=== PATIENT | female | born 1950 | race Hispanic/Latino ===

== ENCOUNTER 2024-03-09 06:36 | Inpatient (IN) | payer OTHER, MEDICARE ==
[2024-03-04 11:59] LABS: BASOPHILS % 0.6 % (0.0-1.0); EOSINOPHILS # (AUTO) 0.3 (0.0-0.4); EOSINOPHILS % 5.1 % (0.0-6.0); HEMATOCRIT 37.2 % (34.2-44.1); HEMOGLOBIN 11.5 g/dL (12.0-16.0); LYMPHOCYTES # (AUTO) 1.6 (1.0-3.2); LYMPHOCYTES % 30.5 % (18.0-39.1); MEAN CORPUSCULAR HEMOGLOBIN 29.5 pg (28-32); MEAN CORPUSCULAR HGB CONC 30.9 g/dL (31-35); MEAN CORPUSCULAR VOLUME 95.4 fL (81-99); MONOCYTES # (AUTO) 0.4 (0.2-0.8); MONOCYTES % 7.6 % (4.4-11.3); NEUTROPHILS # (AUTO) 2.9 (2.1-6.9); PLATELET COUNT 208 x10e3/uL (140-360); RED CELL DISTRIBUTION WIDTH 13.8 % (11.7-14.4); WHITE BLOOD COUNT 5.11 x10e3/uL (4.8-10.8)
[2024-03-04 12:16] LABS: ANION GAP 12.5 mmol/L (8-16); CALCIUM 9.2 mg/dL (8.4-10.2); CREATININE, SERUM 0.66 mg/dL (0.57-1.11); POTASSIUM 4.5 mmol/L (3.5-5.1)
[~2024-03-09] VITALS: Ht 144.8 cm; Wt 62.1 kg
[~2024-03-09 06:36] MED LIST: AMITRIPTYLINE H10 MG PO; DICLOFENAC PO; LISINOPRIL10 MG PO; METFORMIN HCL500 MG PO; SIMVASTATIN20 MG PO; TRAZODONE HCL100 MG PO; VITAMIN D250000 UNIT PO
[2024-03-09] MEDS: LACTATED RINGER'S 1,000 ML ONE (08:20)
[2024-03-09] MEDS ORDERED: BUPIVACAINE 0.25% 30ML SDV ONE (08:44)
[2024-03-09] MEDS ORDERED: FENTANYL CITRATE/PF 100MCG/2 ML INJ ONE (10:58)
[2024-03-09] MEDS: SODIUM CHLORIDE 0.9% 250ML IRRIG IR SCH (12:45)
[2024-03-09] MEDS: FENTANYL CITRATE/PF 100MCG/2 ML INJ ONE (12:53)
[2024-03-09] MEDS: HYDROMORPHONE 1MG/1ML INJ IV PRN (13:24)
[2024-03-09] MEDS: SODIUM CHLORIDE 0.9% 1000ML 1,000 ML IV SCH (15:24)
[2024-03-09] MEDS ORDERED: GABAPENTIN100 MG PO ×2 (15:40)
[2024-03-09] MEDS ORDERED: LEXAPRO10 MG PO (15:47)
[2024-03-09] MEDS ORDERED: PANTOPRAZOLE SO40 MG PO (15:50)
[2024-03-09] MEDS ORDERED: ALENDRONATE SOD70 MG PO (15:50)
[2024-03-09] MEDS: ROPIVACAINE/EPI/CLONIDINE/KET 50 ML SYRINGE INJ ONE (16:40)
[2024-03-09 16:49] VITALS: BP 131/78; PULSE 93; RESP 17; TEMP 97.4; O2SAT 96
[2024-03-09 17:00] VITALS: PULSE 95; RESP 18; O2SAT 98
[2024-03-09] MEDS ORDERED: EPHEDRINE SULFATE INJ 50 MG/ML VIAL ONE (17:19)
[2024-03-09] MEDS ORDERED: ONDANSETRON HCL INJ 2MG/ML 2ML 2 MG/ML VIAL ONE (17:19)
[2024-03-09] MEDS ORDERED: SEVOFLURANE INHAL SOLN 250 ML PEN BTL ONE (17:19)
[2024-03-09] MEDS ORDERED: DEXAMETHASONE SOD PHOS INJ 4 MG/ML SDV ONE (17:19)
[2024-03-09] MEDS ORDERED: LIDOCAINE HCL 2% LOCAL INJ 5 ML SDV VIAL INJ ONE (17:19)
[2024-03-09] MEDS ORDERED: ACETAMINOPHEN 1000 MG/100 ML IV ONE (17:19)
[2024-03-09] MEDS ORDERED: EYE LUBRICANT OPTH OINT 3.5GM TUBE OP ONE (17:19)
[2024-03-09] MEDS ORDERED: PROPOFOL IV EMULSION 10 MG/ML 20 ML VIAL ONE (17:19)
[2024-03-09] MEDS ORDERED: ROCURONIUM BROMIDE 10 MG/ML 5ML VIAL IV ONE (17:19)
[2024-03-09] MEDS ORDERED: SUGAMMADEX SODIUM 200 MG/2 ML VIAL IV ONE (17:19)
[2024-03-09] MEDS ORDERED: DEXMEDETOMIDINE HCL 200 MCG/2 ML VIAL ONE (17:19)
[2024-03-09 18:10] VITALS: BP 155/82; PULSE 73; RESP 18; TEMP 97.4; O2SAT 98
[2024-03-09 18:50] VITALS: PULSE 82; RESP 16; O2SAT 98
[2024-03-09 20:00] VITALS: BP 117/77; PULSE 99; RESP 17; TEMP 98.3; O2SAT 96
[2024-03-10] VITALS (9 sets, daily range): BP systolic 115–137; BP diastolic 68–74; PULSE 80–94; RESP 16–18; TEMP 98.9–100.6; O2SAT 94–98
[2024-03-10] MEDS: ACETAMINOPHEN 1000 MG/100 ML IV PRN (02:39)
[2024-03-10 05:37] LABS: BASOPHILS % 0.1 % (0.0-1.0); HEMATOCRIT 32.3 % (34.2-44.1); HEMOGLOBIN 10.1 g/dL (12.0-16.0); LYMPHOCYTES % 7.9 % (18.0-39.1); MEAN CORPUSCULAR HEMOGLOBIN 29.1 pg (28-32); MEAN CORPUSCULAR HGB CONC 31.3 g/dL (31-35); MEAN CORPUSCULAR VOLUME 93.1 fL (81-99); MONOCYTES % 8.2 % (4.4-11.3); NEUTROPHILS # (AUTO) 10.3 (2.1-6.9); NEUTROPHILS % 83.4 % (38.7-80.0); PLATELET COUNT 220 x10e3/uL (140-360); RED BLOOD COUNT 3.47 x10e6/uL (3.6-5.1); RED CELL DISTRIBUTION WIDTH 13.9 % (11.7-14.4); WHITE BLOOD COUNT 12.35 x10e3/uL (4.8-10.8)
[2024-03-10 06:47] LABS: CALCIUM 8.1 mg/dL (8.4-10.2); CREATININE, SERUM 0.6 mg/dL (0.57-1.11)
[2024-03-10] MEDS: SODIUM CHLORIDE 0.9% IRRIG 1,000 ML BTL IR SCH (13:12)
[2024-03-10] MEDS: ONDANSETRON HCL INJ 2MG/ML 2ML 2 MG/ML VIAL IV PRN (14:16)
[2024-03-11] VITALS (9 sets, daily range): BP systolic 100–156; BP diastolic 52–88; PULSE 77–88; RESP 18–21; TEMP 97.9–99.2; O2SAT 95–99
[2024-03-11 05:19] LABS: BASOPHILS # (AUTO) 0.1 (0.0-0.1); BASOPHILS % 0.4 % (0.0-1.0); EOSINOPHILS % 0.3 % (0.0-6.0); HEMATOCRIT 32.2 % (34.2-44.1); HEMOGLOBIN 9.9 g/dL (12.0-16.0); LYMPHOCYTES # (AUTO) 1.3 (1.0-3.2); LYMPHOCYTES % 10.4 % (18.0-39.1); MEAN CORPUSCULAR HEMOGLOBIN 29.4 pg (28-32); MEAN CORPUSCULAR HGB CONC 30.7 g/dL (31-35); MEAN CORPUSCULAR VOLUME 95.5 fL (81-99); MONOCYTES % 7.6 % (4.4-11.3); NEUTROPHILS # (AUTO) 10.1 (2.1-6.9); NEUTROPHILS % 80.8 % (38.7-80.0); PLATELET COUNT 200 x10e3/uL (140-360); RED BLOOD COUNT 3.37 x10e6/uL (3.6-5.1); RED CELL DISTRIBUTION WIDTH 14.2 % (11.7-14.4); WHITE BLOOD COUNT 12.46 x10e3/uL (4.8-10.8)
[2024-03-11 05:57] LABS: ANION GAP 11.6 mmol/L (8-16); CALCIUM 8.2 mg/dL (8.4-10.2); CREATININE, SERUM 0.5 mg/dL (0.57-1.11); POTASSIUM 3.6 mmol/L (3.5-5.1)
[2024-03-11] MEDS: ACETAMINOPHEN 325 MG TAB PO PRN (07:40)
[2024-03-11] MEDS: BISACODYL 10 MG SUPP PR SCH (19:45)
[2024-03-12] VITALS (10 sets, daily range): BP systolic 132–151; BP diastolic 66–78; PULSE 74–85; RESP 17–21; TEMP 97.9–99; O2SAT 96–100
[2024-03-12 05:26] LABS: BASOPHILS # (AUTO) 0.1 (0.0-0.1); BASOPHILS % 0.5 % (0.0-1.0); EOSINOPHILS # (AUTO) 0.3 (0.0-0.4); EOSINOPHILS % 2.5 % (0.0-6.0); HEMATOCRIT 28.8 % (34.2-44.1); HEMOGLOBIN 9.3 g/dL (12.0-16.0); LYMPHOCYTES # (AUTO) 1.3 (1.0-3.2); LYMPHOCYTES % 11.6 % (18.0-39.1); MEAN CORPUSCULAR HEMOGLOBIN 30.1 pg (28-32); MEAN CORPUSCULAR HGB CONC 32.3 g/dL (31-35); MEAN CORPUSCULAR VOLUME 93.2 fL (81-99); MONOCYTES # (AUTO) 0.7 (0.2-0.8); MONOCYTES % 6.7 % (4.4-11.3); NEUTROPHILS # (AUTO) 8.6 (2.1-6.9); NEUTROPHILS % 78.3 % (38.7-80.0); PLATELET COUNT 193 x10e3/uL (140-360); RED BLOOD COUNT 3.09 x10e6/uL (3.6-5.1); RED CELL DISTRIBUTION WIDTH 13.9 % (11.7-14.4); WHITE BLOOD COUNT 10.99 x10e3/uL (4.8-10.8)
[2024-03-12 05:52] LABS: ANION GAP 10.7 mmol/L (8-16); CALCIUM 8.2 mg/dL (8.4-10.2); CREATININE, SERUM 0.47 mg/dL (0.57-1.11); POTASSIUM 3.7 mmol/L (3.5-5.1)
[2024-03-12] MEDS: GABAPENTIN 300 MG CAP PO SCH (20:00)
[2024-03-13] VITALS: BP 137/66; PULSE 85; RESP 20; TEMP 98; O2SAT 100
[2024-03-13 04:00] VITALS: BP 134/67; PULSE 86; RESP 18; TEMP 98.6; O2SAT 100
[2024-03-13 07:55] VITALS: PULSE 86; RESP 18; O2SAT 97
[2024-03-13 08:00] VITALS: BP 129/73; PULSE 92; RESP 19; TEMP 99.3; O2SAT 99
[2024-03-13 08:18] VITALS: BP 129/73
[2024-03-13] MEDS: LISINOPRIL 20 MG TAB PO SCH (08:18)
[2024-03-13] MEDS: GABAPENTIN 300 MG CAP PO SCH (08:18)
[2024-03-13] MEDS ORDERED: AMITRIPTYLINE HCL 10 MG TAB PO SCH (21:00)
== END 2024-03-13 12:45 | disposition home or self-care (01) | DRG 337 ==
LOC: OR 06:36 → PACU V 12:37 → MED/SURG 14:14
PROVIDERS: ADMIT Surgery; ATTEND Surgery
PROC: 0DNE0ZZ Release Large Intestine, Open Approach (ICD-10-PCS; 2024-03-09)
PROC: 0WUF0JZ Supplement Abdominal Wall with Synthetic Substitute, Open Approach (ICD-10-PCS; 2024-03-09)
PROC: 0DN80ZZ Release Small Intestine, Open Approach (ICD-10-PCS; principal; 2024-03-09 08:54)
DX: K43.6 Other and unspecified ventral hernia with obstruction, without gangrene (principal); D63.8 Anemia in other chronic diseases classified elsewhere; I10 Essential (primary) hypertension; Z90.49 Acquired absence of other specified parts of digestive tract; E66.9 Obesity, unspecified; Z68.29 Body mass index [BMI] 29.0-29.9, adult
CPT/HCPCS: 36415; 71046; 80048; 85025; 88302; 93005; 94799; 99252; C1781; J0696; J1100; J1171; J2003; J2405; J2470; J2795; J7030

== ENCOUNTER 2024-09-12 10:21 | Inpatient (IN) | payer MEDICARE ==
[~2024-09-12] VITALS: Ht 144.8 cm; Wt 54.2 kg
[2024-09-12] VITALS (7 sets, daily range): BP systolic 135–150; BP diastolic 76–86; PULSE 83–102; RESP 16–18; TEMP 98.2–98.9; O2SAT 97–99
[~2024-09-12 10:21] MED LIST changes: +ALENDRONATE SOD70 MG PO; +GABAPENTIN100 MG PO; +LEXAPRO10 MG PO; +PANTOPRAZOLE SO40 MG PO
[2024-09-12 11:20] LABS: BASOPHILS % 0.4 % (0.0-1.0); EOSINOPHILS # (AUTO) 0.1 (0.0-0.4); EOSINOPHILS % 0.7 % (0.0-6.0); HEMATOCRIT 38.4 % (34.2-44.1); HEMOGLOBIN 13.1 g/dL (12.0-16.0); LYMPHOCYTES # (AUTO) 0.8 (1.0-3.2); LYMPHOCYTES % 10.1 % (18.0-39.1); MEAN CORPUSCULAR HEMOGLOBIN 28.9 pg (28-32); MEAN CORPUSCULAR HGB CONC 34.1 g/dL (31-35); MEAN CORPUSCULAR VOLUME 84.8 fL (81-99); MONOCYTES # (AUTO) 0.2 (0.2-0.8); MONOCYTES % 2.8 % (4.4-11.3); NEUTROPHILS # (AUTO) 6.5 (2.1-6.9); NEUTROPHILS % 85.6 % (38.7-80.0); PLATELET COUNT 168 x10e3/uL (140-360); RED BLOOD COUNT 4.53 x10e6/uL (3.6-5.1); RED CELL DISTRIBUTION WIDTH 14.8 % (11.7-14.4)
[2024-09-12] MEDS: SODIUM CHLORIDE 0.9% 1000ML 1,000 ML IV STA (11:46)
[2024-09-12] MEDS: ONDANSETRON HCL INJ 2MG/ML 2ML 2 MG/ML VIAL IV PRN (11:46)
[2024-09-12] MEDS: FENTANYL CITRATE/PF 100MCG/2 ML INJ IV PRN (11:48)
[2024-09-12 12:39] LABS: ALBUMIN 3.8 g/dL (3.5-5.0); ANION GAP 15.3 mmol/L (8-16); BILIRUBIN,TOTAL 1.2 mg/dL (0.2-1.2); CALCIUM 8.7 mg/dL (8.4-10.2); CREATININE, SERUM 0.6 mg/dL (0.57-1.11); TOTAL PROTEIN 7.6 g/dL (6.5-8.1)
[2024-09-12 12:47] LABS: POTASSIUM 3.3 mmol/L (3.5-5.1)
[2024-09-12] MEDS ORDERED: IOPAMIDOL 370 MG/ML 100 ML INFUS..BTL INJ ONE (12:59)
[2024-09-12 14:12] LABS: CLARITY,URINE CLEAR (CLEAR); COLOR,URINE YELLOW (YELLOW)
[2024-09-12 14:13] LABS: BILIRUBIN,URINE NEGATIVE (NEGATIVE); GLUCOSE, URINE NEGATIVE (NEGATIVE); KETONES,URINE 1+ (NEGATIVE); LEUKOCYTE ESTERASE ,URINE NEGATIVE (NEGATIVE); NITRITE,URINE NEGATIVE (NEGATIVE); PH,URINE 7 (5 - 7); PROTEIN,URINE DIPSTICK NEGATIVE (NEGATIVE); URINE UROBILINOGEN 0.2 mg/dL (0.2 - 1)
[2024-09-12 14:16] LABS: BACTERIA,URINE RARE /HPF; EPITHELIAL CELLS,URINE FEW /LPF; RBC,URINE 0-5 /HPF (0-5)
[2024-09-12] MEDS: SODIUM CHLORIDE 0.9% 1000ML 1,000 ML IV SCH (15:48)
[2024-09-12] MEDS ORDERED: DICLOFENAC SODI50 MG (17:14)
[2024-09-12] MEDS ORDERED: FAMOTIDINE20 MG PO (17:14)
[2024-09-12] MEDS ORDERED: BENICAR20 MG PO (17:14)
[2024-09-12] MEDS: Morphine 4mg INJECTION 4 MG/ML INJ IV PRN (20:43)
[2024-09-12] MEDS: METRONIDAZOLE 750MG/NS 150ML 150 ML IV SCH (22:58)
[2024-09-13] VITALS (11 sets, daily range): BP systolic 109–142; BP diastolic 58–82; PULSE 76–98; RESP 17–20; TEMP 97.8–99; O2SAT 96–100
[2024-09-13] MEDS ORDERED: METOPROLOL TARTRATE INJ 1 MG/ML VIAL IV PRN (07:15)
[2024-09-13] MEDS ORDERED: DOCUSATE SODIUM 100 MG CAP PO PRN (07:15)
[2024-09-13] MEDS ORDERED: MELATONIN 3 MG TAB PO PRN (07:15)
[2024-09-13] MEDS ORDERED: ALBUTEROL/IPRATROPIUM 3 ML NEB NEB PRN (07:15)
[2024-09-13] MEDS: AMITRIPTYLINE HCL 10 MG TAB PO SCH (08:32)
[2024-09-13] MEDS: GABAPENTIN 300 MG CAP PO SCH ×2 (08:32→20:52)
[2024-09-13] MEDS: PANTOPRAZOLE SOD 40 MG TABEC PO SCH (08:32)
[2024-09-13] MEDS: ACETAMINOPHEN 325 MG TAB PO PRN (08:33)
[2024-09-13] MEDS: ENOXAPARIN SOD INJ 40 MG/0.4 ML SYR SC SCH (17:08)
[2024-09-13] MEDS: ESCITALOPRAM OXALATE 10 MG TAB PO SCH (20:53)
[2024-09-13] MEDS: TRAZODONE HCL 50 MG TAB PO SCH (20:53)
[2024-09-13] MEDS: SIMVASTATIN 20 MG TAB PO SCH (20:59)
[2024-09-14] VITALS (9 sets, daily range): BP systolic 109–147; BP diastolic 62–74; PULSE 76–99; RESP 16–22; TEMP 97.4–97.9; O2SAT 95–99
[2024-09-14] MEDS: METOCLOPRAMIDE HCL 10 MG/2ML VIAL IV SCH (06:28)
[2024-09-14] MEDS: TRAMADOL HCL 50 MG TAB PO PRN (08:37)
[2024-09-14 10:01] LABS: BASOPHILS % 0.5 % (0.0-1.0); EOSINOPHILS % 0.2 % (0.0-6.0); HEMATOCRIT 31.4 % (34.2-44.1); HEMOGLOBIN 10.7 g/dL (12.0-16.0); LYMPHOCYTES # (AUTO) 1.1 (1.0-3.2); LYMPHOCYTES % 17.3 % (18.0-39.1); MEAN CORPUSCULAR HEMOGLOBIN 29.5 pg (28-32); MEAN CORPUSCULAR HGB CONC 34.1 g/dL (31-35); MEAN CORPUSCULAR VOLUME 86.5 fL (81-99); MONOCYTES # (AUTO) 0.4 (0.2-0.8); MONOCYTES % 6.3 % (4.4-11.3); NEUTROPHILS # (AUTO) 4.7 (2.1-6.9); NEUTROPHILS % 75.2 % (38.7-80.0); PLATELET COUNT 210 x10e3/uL (140-360); RED BLOOD COUNT 3.63 x10e6/uL (3.6-5.1); RED CELL DISTRIBUTION WIDTH 14.8 % (11.7-14.4)
[2024-09-14 10:34] LABS: ANION GAP 13.9 mmol/L (8-16); CALCIUM 8.2 mg/dL (8.4-10.2); CREATININE, SERUM 0.64 mg/dL (0.57-1.11)
[2024-09-14 10:46] LABS: POTASSIUM 2.9 mmol/L (3.5-5.1)
[2024-09-14] MEDS: POTASSIUM CHLORIDE 20MEQ/100ML 100 ML IV SCH (12:12)
[2024-09-15] VITALS: BP 127/75; PULSE 81; RESP 18; TEMP 98; O2SAT 99
[2024-09-15 02:52] LABS: % IRON SATURATION 24 % (15-50); IRON 74 ug/dL (50-170); TOTAL IRON BINDING CAPACITY 305 ug/dL (261-478); TRANSFERRIN 218 mg/dL (180-382)
[2024-09-15 04:00] VITALS: BP 141/86; PULSE 71; RESP 18; TEMP 98; O2SAT 98
[2024-09-15 07:31] LABS: ANION GAP 9.1 mmol/L (8-16); CALCIUM 7.9 mg/dL (8.4-10.2); CREATININE, SERUM 0.53 mg/dL (0.57-1.11)
[2024-09-15 07:32] LABS: POTASSIUM 3.1 mmol/L (3.5-5.1)
[2024-09-15 07:48] VITALS: PULSE 78; RESP 18; O2SAT 96
[2024-09-15 09:04] VITALS: BP 150/75; PULSE 78; RESP 16; TEMP 97.8; O2SAT 100
[2024-09-15] MEDS ORDERED: METRONIDAZOLE500 MG PO (09:22)
[2024-09-15] MEDS ORDERED: ONDANSETRON ODT4 MG PO (09:23)
[2024-09-15] MEDS ORDERED: SODIUM BICARBO650 MG PO (09:23)
[2024-09-15 10:18] VITALS: BP 150/75; PULSE 78; RESP 16; TEMP 97.8; O2SAT 100
[2024-09-15] MEDS ORDERED: ONDANSETRON HCL 4 MG ORAL DISINTEGRATING TAB PO PRN (10:30)
[2024-09-15] MEDS ORDERED: PANTOPRAZOLE SOD 40 MG TABEC PO SCH (16:30)
== END 2024-09-15 10:55 | disposition home or self-care (01) | DRG 372 ==
LOC: ER 10:49 → ERHOLD 15:17 → MED/SURG3 16:52
PROVIDERS: ADMIT Internal Medicine; ATTEND Internal Medicine
DX: A04.9 Bacterial intestinal infection, unspecified (principal); E86.0 Dehydration; E87.1 Hypo-osmolality and hyponatremia; R18.8 Other ascites; I10 Essential (primary) hypertension; E78.5 Hyperlipidemia, unspecified; R73.9 Hyperglycemia, unspecified; D64.9 Anemia, unspecified; K31.7 Polyp of stomach and duodenum; F41.9 Anxiety disorder, unspecified; G25.81 Restless legs syndrome; Z90.49 Acquired absence of other specified parts of digestive tract
CPT/HCPCS: 36415; 74177; 80048; 80053; 81001; 82607; 82746; 83036; 83540; 83605; 83690; 84132; 84466; 84484; 85025; 85045; 87040; 93005; 94799; 99284; J1650; J2270; J2405; J2470; J2543; J2765; J3480; J7030; Q9967